=== PATIENT | female | born 1945 | race Caucasian/White ===

== ENCOUNTER 2020-03-07 08:24 | Outpatient (REF) | payer MEDICARE, SELFPAY ==
--- NOTE | 2020-03-07 08:31 | MM_ITS ---
EXAMINATION: MM SCREENING DIGITAL BREAST TOMOSYNTHESIS, BILATERAL CLINICAL INFORMATION: Right lumpectomy 2016 for breast cancer. Due for yearly. COMPARISON: Mammography: 10/26/2018, 10/17/2017, 09/27/2016 TECHNIQUE: Digital breast tomosynthesis is performed in both the craniocaudal and mediolateral oblique views along with computer-aided detection (CAD). Synthesized 2D images are generated from the tomosynthesis. Additional exaggerated right CC x2 views are provided. FINDINGS: The breasts are heterogeneously dense, which may obscure small masses (ACR BI-RADS breast composition Category c). There are post therapy changes on the right with mild diffuse breast size, surgical clips, and chronic stable scarring. There are scattered calcifications in each breast, the right are stable. There are likely increased calcifications anterior 12:30 o'clock left breast and mid upper outer left breast. Some of the punctate densities on synthesized images may also be related to digital processing artifact. Patient will be recalled for additional imaging. MM/MM tomosynthesis screening BI IMPRESSION: 1. Left: Suspect increased calcifications anterior 12:30 o'clock and mid upper outer quadrant likely with some superimposed digital processing artifact on synthesized images. 2. Right: Post therapy changes. No significant change from prior studies. ASSESSMENT: BI-RADS 0: Incomplete - Need Additional Imaging Evaluation RECOMMENDATION: 1. Additional views of the left (magnification CC, magnification ML). 2. Radiology department staff will contact the patient for additional imaging. This patient's information was entered into a reminder system with a target due date for their next mammogram.
== END 2020-03-07 08:25 | disposition home or self-care (01) ==
LOC: HO.MAMMO 08:24
PROVIDERS: PCP Internal Medicine; Visit Provider Internal Medicine
DX: Z12.31 Encounter for screening mammogram for malignant neoplasm of breast (principal)
CPT/HCPCS: 77063; 77067

== ENCOUNTER 2020-04-01 12:55 | Outpatient (REF) | payer MEDICARE, SELFPAY ==
--- NOTE | 2020-04-01 13:01 | MM_ITS ---
EXAMINATION: MM DIAGNOSTIC DIGITAL MAMMOGRAPHY, LEFT CLINICAL INFORMATION: Recall from screening for question of increased calcifications anterior 12:30 o'clock left breast and mid upper outer left breast. COMPARISON: Mammography: 03/07/2020, 10/26/2018, 10/17/2017 TECHNIQUE: Digital mammography is performed in the following views: Magnification CC, magnification ML. FINDINGS: The breasts are heterogeneously dense, which may obscure small masses (ACR BI-RADS breast composition Category c). The additional views show scattered punctate calcifications in the anterior upper outer left breast similar to prior studies dating back to 2018. There are no focal increased calcifications or ductal distribution or pleomorphic types. Results are discussed with the patient at time of visit. MM/MM added views LT IMPRESSION: Additional views show scattered punctate calcifications similar to prior studies. ASSESSMENT: BI-RADS 2: Benign RECOMMENDATION: Routine annual mammography screening. This patient's information was entered into a reminder system with a target due date for their next mammogram.
== END 2020-04-01 12:56 | disposition home or self-care (01) ==
LOC: HO.MAMMO 12:55
PROVIDERS: PCP Internal Medicine; Visit Provider Internal Medicine
DX: R92.8 Other abnormal and inconclusive findings on diagnostic imaging of breast (principal)
CPT/HCPCS: 77065

== ENCOUNTER → 2020-04-07 09:52 | Outpatient (BNV) | payer MEDICARE, SELFPAY | PROVIDERS: PCP Internal Medicine; Visit Provider Internal Medicine | DX: Z85.3 Personal history of malignant neoplasm of breast (principal) | CPT/HCPCS: 99212; 99214; G2211 ==

== ENCOUNTER 2021-04-01 06:23 | Outpatient (REF) | payer MEDICARE, SELFPAY ==
[2021-04-01 11:52] LABS: Alanine Aminotransferase 20 U/L (0-31); Anion Gap 13 (12-20); Aspartate Amino Transferase 26 U/L (5-31); Blood Urea Nitrogen 13 mg/dL (9-16); Calcium 9.6 mg/dL (8.4-10.2); Carbon Dioxide 29 mmol/L (22-29); Chloride 106 mmol/L (96-108); Cholesterol 253 mg/dL; Estimated Glomerular Filt Rate 57; Glucose Fasting 109 mg/dL (60-99); HDL Cholesterol 79 mg/dL; LDL Cholesterol Calculated 144 mg/dl; Potassium 4.2 mmol/L (3.3-5.1); Sodium 144 mmol/L (135-145); Triglycerides 153 mg/dL
[2021-04-01 12:03] LABS: Vitamin D 25-OH Total 43.5 ng/mL (>30)
== END 2021-04-01 06:24 | disposition home or self-care (01) ==
LOC: HO.HMGCLDS 06:23
PROVIDERS: PCP Internal Medicine; Visit Provider Internal Medicine
DX: I10 Essential (primary) hypertension (principal); M85.80 Other specified disorders of bone density and structure, unspecified site; Z78.0 Asymptomatic menopausal state
CPT/HCPCS: 36415; 80048; 80061; 82306; 84450; 84460

== ENCOUNTER 2021-04-21 14:58 | Outpatient (REF) | payer MEDICARE, SELFPAY ==
--- NOTE | ~2021-04-21 | MM_ITS ---
EXAMINATION: MM SCREENING DIGITAL BREAST TOMOSYNTHESIS, BILATERAL CLINICAL INFORMATION: Prior right lumpectomy for breast cancer, 2016. Due for yearly exam. COMPARISON: Mammography: 04/01/2020, 03/07/2020, 10/26/2018, 10/17/2017 TECHNIQUE: Digital breast tomosynthesis is performed in both the craniocaudal and mediolateral oblique views along with computer-aided detection (CAD). Synthesized 2D images are generated from the tomosynthesis. FINDINGS: The breasts are heterogeneously dense, which may obscure small masses (ACR BI-RADS breast composition Category c). There are post therapy changes on the right with mild reduced breast size and stable scarring and surgical clips. There is a fibronodular parenchymal pattern bilateral breasts similar to prior studies. There is no developing density or interval mass or architectural abnormality. Scattered punctate and coarse round calcifications are present in each breast similar in number and distribution to prior study. The axilla are unremarkable. No significant changes. MM/MM tomosynthesis screening BI IMPRESSION: No mammographic evidence of malignancy. Post therapy changes right breast. ASSESSMENT: BI-RADS 2: Benign RECOMMENDATION: Routine annual mammography screening. This patient's information was entered into a reminder system with a target due date for their next mammogram.
== END 2021-04-21 14:59 | disposition home or self-care (01) ==
LOC: HO.MAMMO 14:58
PROVIDERS: PCP Internal Medicine; Visit Provider Internal Medicine
DX: Z12.31 Encounter for screening mammogram for malignant neoplasm of breast (principal)
CPT/HCPCS: 77063; 77067

== ENCOUNTER 2021-05-08 10:06 | Outpatient (REF) | payer MEDICARE, SELFPAY ==
--- NOTE | ~2021-05-08 | US_ITS ---
EXAMINATION: US THYROID CLINICAL INFORMATION: Nontoxic single thyroid nodule. Palpable left neck nodule. COMPARISON: None TECHNIQUE: Linear transducer grayscale and color Doppler examination with attention to the region of the thyroid. FINDINGS: SIZE: Measurements of the thyroid lobes and nodules are given in sagittal, anteroposterior and transverse dimensions respectively. Right Thyroid Lobe: 5.2 x 1.5 x 1.7 cm, volume 6.9 mL. Parenchyma: The gland echotexture is homogeneous. Thyroid vascularity is normal. Left Thyroid Lobe: 5.1 x 1.1 x 1.4 cm, volume 4.1 mL. Parenchyma: The gland echotexture is homogeneous. Thyroid vascularity is normal. Isthmus: 0.3 cm in maximum AP dimension. Estimated total number of nodules greater than or equal to 1 cm: 0. Addiction Specialist nodules are described as follows: 1. Location: Right inferior lateral. Size: 0.8 x 0.8 x 0.8 cm, volume 0.25 mL. Nodule characteristics: Composition: Mixed cystic and solid (1). Echogenicity: Cannot be determined (1). Shape: Not taller than wide (0). Margins: Smooth (0). Echogenic Foci: None (0). ACR TI-RADS total points: 2 ACR TI-RADS category: 2 NODES: No lymphadenopathy is seen in the tissue surrounding the thyroid gland. US/US thyroid IMPRESSION: Small solitary right thyroid nodule. This does not meet TIA RADS criteria for ultrasound follow-up for fine-needle aspiration. ACR TI-RADS RECOMMENDATION REFERENCE: Ultrasound-guided fine-needle aspiration, followup ultrasound, no further follow up. * TR1 (0 point) and TR 2 (2 points): No FNA or follow up * TR3 (3 points): FNA if more than or equal to 2.5 cm in maximum dimension, followup ultrasound in 1, 3 and 5 years if 1.5 to 2.4 cm in maximum dimension. * TR4 (4-6 points): FNA if more than or equal to 1.5 cm in maximum dimension, followup ultrasound in 1, 2, 3 and 5 years if 1 to 1.4 cm in maximum dimension. * TR5 (more than or equal to 7 points): FNA if more than or equal to 1 cm in maximum dimension, followup ultrasound every year for 5 years if 0.5 to 0.9 cm in maximum dimension. * TR3, TR4 or TR5 nodules that are below the size threshold for follow up receive no follow up.
== END 2021-05-08 10:07 | disposition home or self-care (01) ==
LOC: HO.HMGCX 10:06
PROVIDERS: PCP Internal Medicine; Visit Provider Internal Medicine
DX: E04.1 Nontoxic single thyroid nodule (principal)
CPT/HCPCS: 76536

== ENCOUNTER 2021-09-09 13:23 | Outpatient (REF) | payer MEDICARE, SELFPAY ==
[2021-09-09 13:44] LABS: Binax Internal Control QC Valid; Binax Now Covid-19 Ag Positive (Negative); Binax Performed by: HO.BONILM
== END 2021-09-09 13:24 | disposition home or self-care (01) ==
LOC: HO.HMGCLDS 13:23
PROVIDERS: PCP Internal Medicine; Visit Provider Internal Medicine
DX: Z20.822 Contact with and (suspected) exposure to COVID-19 (principal); J06.9 Acute upper respiratory infection, unspecified
CPT/HCPCS: 87811; C9803

== ENCOUNTER 2021-11-02 11:42 | Outpatient (REF) | payer MEDICARE, SELFPAY ==
--- NOTE | ~2021-11-02 | XR_ITS ---
EXAMINATION: XR HIP, RIGHT CLINICAL INFORMATION: Right hip sprain COMPARISON: None TECHNIQUE: Single view pelvis and Two additional views of the right hip. FINDINGS: Bones and soft tissues are unremarkable with only some minimal superior acetabular sclerosis. No significant joint space narrowing is seen. No fractures or dislocations. Mild degenerative changes are noted at the SI joints. Alignment is anatomic. XR/XR hip RT w PEL1V IMPRESSION: No acute finding. Minimal degenerative changes as described above
== END 2021-11-02 11:43 | disposition home or self-care (01) ==
LOC: HO.HMGCX 11:42
PROVIDERS: PCP Internal Medicine; Visit Provider Internal Medicine
DX: S73.101A Unspecified sprain of right hip, initial encounter (principal)
CPT/HCPCS: 73502

== ENCOUNTER 2021-11-18 09:14 | Outpatient (REF) | payer MEDICARE, SELFPAY ==
--- NOTE | ~2021-11-18 | XR_ITS ---
EXAMINATION: XR LUMBOSACRAL SPINE WITH OBLIQUES CLINICAL INFORMATION: Low back pain COMPARISON: None TECHNIQUE: AP, both oblique, and lateral views of the lumbar spine. Lateral view of the lumbosacral junction. FINDINGS: There is normal lumbar lordosis. The vertebral heights, alignment appears normal. There is loss of L5-S1 disc height. Rest of the disc heights are normal. No acute fracture, dislocation or lytic process seen. XR/XR lumbar spine 4V min IMPRESSION: Degenerative disc changes L5-S1 disc level.
== END 2021-11-18 09:15 | disposition home or self-care (01) ==
LOC: HO.HMGCX 09:14
PROVIDERS: PCP Internal Medicine; Visit Provider Internal Medicine
DX: M54.50 Low back pain, unspecified (principal)
CPT/HCPCS: 72110

== ENCOUNTER 2022-03-26 12:49 | Outpatient (AMB) | payer MEDICARE, SELFPAY ==
--- NOTE | 2022-03-26 12:50 | MHC.PC.OV ---
Vital Signs 03/26/22 12:53 Height 5 ft 3 in Weight 104 lb 7 oz BMI 18.5 BP 135/70 Blood Pressure Location Lt brachial Position Sitting Pulse 69 Pulse Source Pulse Oximeter Pulse Oximetry (%) 97 Oxygen Delivery Method Room Air Intake Visit Reasons: Annual Physical Intake Note: Pt is here today for her annual physical exam. Allergies No Known Allergies [No Known Allergies*] Allergy (Verified 03/26/22 13:17) Medication List - Last Reconciled 03/26/22 by Lilly Colmenares MD calcium carbonate-vitamin D3 600 mg-5 mcg (200 unit) 1 tab PO DAILY metoprolol tartrate 25 mg PO BID multivitamin 1 tab PO DAILY multivitamin with minerals (Hair,Skin and Nails tablet) 2 tabs PO BID Tobacco use date assessed: 03/26/22 Fall risk assessment: 1 Fall in past year Last assessed Fall Risk: 03/26/22 HPI Annual Physical HPI Details 77-year-old lady with dyslipidemia, osteopenia, hypertension, arthritis, and with history of invasive lobular carcinoma right breast, here today for her physical exam. She has been having recurrent pain in her right shoulder, has been taking [id number] NSAIDs and applying heat to affected area with no improvement. [facility] Medical History Chronic right shoulder pain Dyslipidemia Breast cancer, right breast Colonoscopy planned Arthropathy of left shoulder Right rib fracture Osteopenia HTN (hypertension) Surgical History H/O section History of carpal tunnel surgery Family History Maternal Grandmother Breast cancer Son Drug overdose Social History Household Members: None Housing: House Are you a primary child care group leader to a significant other at home: No Do you presently have visiting nurse or other home services: No Alcohol intake: current Alcohol intake frequency: a few times a month Alcohol type: wine Patient Tobacco Use Status: Former Tobacco user Quit Date: 1985 Tobacco use type: Cigarette Cigarette Packs Per Day: 1 e-Cigarette/Vaping Use: Never Used Use of substances other than those prescribed or required for medical reasons: No Have you been hit, kicked, punched, or otherwise hurt by someone within the past year? 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 Depression Screening Interpretation: Negative Source: Developed by Drs. Selvin Hatch, Batool Pedersen, Levar Hyatt and colleagues, with an educational lisette from [employer]. Thrive Questionnaire Date Thrive assessed: 04/07/21 AUDIT C Alcohol Use Questionnaire (AUDIT-C) 1. How often do you have a drink containing alcohol?: 2-4 times a month 2. How many drinks containing alcohol do you have on a typical day when you are drinking?: 1 or 2 3. How often do you have six or more drinks on one occasion?: Never Total Score: 2 GISSELLE-7 AMB Questionnaire GISSELLE-7 Date GISSELLE - 7 assessed: 04/07/21 Source: Developed by Drs. Selvin Hatch, Batool Pedersen, Levar Hyatt and colleagues, with an educational lisette from [employer]. Review of Systems Const Denies body aches, Denies fatigue, Denies fever(s), Denies headache(s) and Denies weakness Eyes Denies change in vision and Denies itchy eyes ENT Denies dizziness, Denies headache(s), Denies nasal congestion and Denies nasal discharge Card Denies chest pain, Denies lightheadedness, Denies palpitations and Denies dyspnea Resp Denies chest congestion, Denies cough, Denies dyspnea and Denies wheezing GI Denies abdominal pain, Denies change in bowel habits and Denies heartburn Denies urinary frequency, Denies dysuria and Denies urinary urgency Musc Reports as per HPI Skin/Breast Denies lesions and Denies rash Neuro Denies dizziness, Denies headache(s) and Denies weakness Psych Reports no additional complaints Endo Denies fatigue, Denies polydipsia, Denies polyuria and Denies palpitations Joel/Lymph Denies easy bruising Aller/Immun Denies itchy eyes, Denies seasonal rhinorrhea and Denies wheezing Physical exam (Primary Care) Vital Signs: Last Vital Signs Pulse 69 03/26/22 12:53 BP 135/70 03/26/22 12:53 Pulse Ox 97 03/26/22 12:53 Oxygen Delivery Method Room Air 03/26/22 12:53 BMI result Body Mass Index 18.5 Tobacco/Smoking Status: Tobacco use Status Tobacco use date assessed 03/26/22 03/26/22 12:55 Patient Tobacco Use Status Former Tobacco user 03/26/22 12:51 Tobacco use type Cigarette 03/26/22 12:51 e-Cigarette/Vaping Use Never Used 03/26/22 12:51 Depression Screening Interpretation: Negative Thrive Assessment: Date of Thrive Assessment Date Thrive assessed 04/07/21 03/26/22 12:51 Const Other: Alert oriented x3, no acute distress noted ambulatory normal gait Orientation/consciousness: patient oriented x3 HENMT Head: Yes normocephalic and Yes atraumatic Ears: hearing grossly normal bilaterally, external ears normal, TM's normal bilaterally and EAC's normal General nose exam: Normal external nose present and No nasal discharge present Face and sinus: Yes face symmetric Mouth: Normal oral and palatal mucosa present, oropharynx normal and moist mucous membranes Eyes General: appearance normal, both eyes and all related structures Neck Other: Supple, no lymphadenopathy, thyroid gland nonpalpable Chest Chest palpation & inspection: normal inspection of the chest and other (Healed surgical scar right upper outer quadrant of breast) Breast/axilla palpation: normal palpation of the breasts and normal palpation of the axillae Resp Effort & Inspection: normal respiratory effort and able to speak in complete sentences Auscultation: clear to auscultation bilaterally Cardio Other: S1-S2 present regular rate and rhythm GI Palpation (GI): Soft to palpation, nontender, no guarding and not rigid Auscultation: normal bowel sounds General: Yes no CVA tenderness and Yes deferred Back/Spine/Pelvis Back: no CVA tenderness and No back tenderness Skin General skin exam: no rashes or lesions noted Neuro General: patient oriented x3, gait normal, moves all extremities, Normal light touch and pain sensation, no focal motor deficits and CN's II-XI intact bilaterally Extrem Other: Decreased range of motion in right shoulder joint, with slight tenderness on palpation over right AC General: Yes no joint enlargement, Yes no pedal edema, Yes no calf tenderness and Yes normal gait Psych Appearance: grossly normal and well kempt Mental Status: mental status grossly normal Speech and movement: Normal speech and movement present Affect: normal affect Attitude: cooperative Thought process: Normal thought process present Thought content: Normal thought content present Assessment and Plan Assessment & Plan (1) Annual visit for general adult medical examination with abnormal findings: Code(s): Z00.01 - Encounter for general adult medical examination with abnormal findings Plan: Will check appropriate labs. Recommended dental visit every 6 months and regular eye exams, at least every 2 years, has an appointment with [facility].. Take adequate calcium in diet and vitamin-D 3 at 2000 IU per cap once a day, in addition to weight-bearing exercises to help maintain good muscle tone and weight control. Instructed to do self-breast exam, and ordered screening mammogram and bone density scan to be done after 04/27/2022.. She already received her COVID vaccine including the booster, up-to-date with her flu shot and pneumonia vaccination and Tdap. Reminded to get shingles vaccine, which she can get administered at the pharmacy. Patient's last colonoscopy was in 2008 but does not want to repeat another procedure. Cologuard testing was ordered (2) Chronic right shoulder pain: Code(s): M25.511 - Pain in right shoulder; G89.29 - Other chronic pain Plan: X-ray of right shoulder ordered, referral ordered for physical therapy (3) Dyslipidemia: Code(s): E78.5 - Hyperlipidemia, unspecified Plan: Reviewed last fasting lipid profile with patient with elevated triglycerides . Stressed importance of adherence to low-cholesterol diet and regular exercise, at least 30 minutes 3 to 4 times a week. Advised patient to make healthy food choices, eat more fruits, vegetables, whole grains, wild caught fish and low-fat dairy. Limit amount of meat and fried or fatty food products, as well as processed foods and fast foods. Repeat fasting lipid panel ordered (4) Osteopenia: Code(s): M85.80 - Other specified disorders of bone density and structure, unspecified site Plan: Advised to continue to doing regular weight-bearing exercise, take vitamin-D 3 supplements and take adequate calcium from dietary sources. bone density scan was ordered (5) HTN (hypertension): Code(s): I10 - Essential (primary) hypertension Plan: Blood pressure at goal of less than 130/80. Continue with current medication. Reinforced importance of following a low sodium diet, getting regular exercise, and lowering stress levels. (6) Menopausal disorder: Code(s): N95.9 - Unspecified menopausal and perimenopausal disorder Orders: Orders XR shoulder RT min 2V 03/26/22 M25.511 - Pain in right shoulder, G89.29 - Other chronic pain Alanine Aminotransferase 03/26/22 E78.5 - Hyperlipidemia, unspecified, M85.80 - Other specified disorders of bone density and structure, unspecified site, I10 - Essential (primary) hypertension, Z00.01 - Encounter for general adult medical examination with abnormal findings, Z78.0 - Asymptomatic menopausal state Basic Metabolic Panel Fasting 03/26/22 E78.5 - Hyperlipidemia, unspecified, M85.80 - Other specified disorders of bone density and structure, unspecified site, I10 - Essential (primary) hypertension, Z00.01 - Encounter for general adult medical examination with abnormal findings, Z78.0 - Asymptomatic menopausal state PT Evaluation and Treatment 03/26/22 M25.511 - Pain in right shoulder, G89.29 - Other chronic pain Lipid Panel 03/26/22 E78.5 - Hyperlipidemia, unspecified, M85.80 - Other specified disorders of bone density and structure, unspecified site, I10 - Essential (primary) hypertension, Z00.01 - Encounter for general adult medical examination with abnormal findings, Z78.0 - Asymptomatic menopausal state Complete Blood Count Auto Diff 03/26/22 E78.5 - Hyperlipidemia, unspecified, M85.80 - Other specified disorders of bone density and structure, unspecified site, I10 - Essential (primary) hypertension, Z00.01 - Encounter for general adult medical examination with abnormal findings, Z78.0 - Asymptomatic menopausal state Aspartate Amino Transferase 03/26/22 E78.5 - Hyperlipidemia, unspecified, M85.80 - Other specified disorders of bone density and structure, unspecified site, I10 - Essential (primary) hypertension, Z00.01 - Encounter for general adult medical examination with abnormal findings, Z78.0 - Asymptomatic menopausal state Vitamin D 25-OH Total 03/26/22 E78.5 - Hyperlipidemia, unspecified, M85.80 - Other specified disorders of bone density and structure, unspecified site, I10 - Essential (primary) hypertension, Z00.01 - Encounter for general adult medical examination with abnormal findings, Z78.0 - Asymptomatic menopausal state MM screening mammo BI 03/26/22 M85.80 - Other specified disorders of bone density and structure, unspecified site, Z12.31 - Encounter for screening mammogram for malignant neoplasm of breast, N95.9 - Unspecified menopausal and perimenopausal disorder XR DEXA axial skeleton 03/26/22 M85.80 - Other specified disorders of bone density and structure, unspecified site, N95.9 - Unspecified menopausal and perimenopausal disorder Referrals Cologuard Test Z12.12 - Encounter for screening for malignant neoplasm of rectum, Z12.11 - Encounter for screening for malignant neoplasm of colon Coding Level of Care Code Est Pt Prev Care >65y(72562) Diagnoses Annual visit for general adult medical examination with abnormal findings Z00.01 Chronic right shoulder pain M25.511; G89.29 Dyslipidemia E78.5 Osteopenia M85.80 HTN (hypertension) I10 Menopausal disorder N95.9
[2022-03-26 12:53] VITALS: BP 135/70; PULSE 69; O2SAT 97; BMI 18.5
== END 2022-03-26 15:25 | disposition home or self-care (01) ==
LOC: HO.HMGC 12:49
PROVIDERS: PCP Internal Medicine; Visit Provider Internal Medicine
DX: Z00.01 Encounter for general adult medical examination with abnormal findings (principal); M25.511 Pain in right shoulder; G89.29 Other chronic pain; E78.5 Hyperlipidemia, unspecified; M85.80 Other specified disorders of bone density and structure, unspecified site; I10 Essential (primary) hypertension; N95.9 Unspecified menopausal and perimenopausal disorder
CPT/HCPCS: 99397

== ENCOUNTER 2022-03-26 13:39 | Outpatient (REF) | payer MEDICARE, SELFPAY ==
--- NOTE | ~2022-03-26 | XR_ITS ---
EXAMINATION: XR SHOULDER, RIGHT CLINICAL INFORMATION: Pain COMPARISON: None TECHNIQUE: Three views of the right shoulder. FINDINGS: Bone alignment is normal. No fracture or dislocation. Normal glenohumeral joint. Mild arthritis at the acromioclavicular joint. Soft tissue calcifications raising adjacent to the greater tuberosity more suggestive suggestive of calcific bursitis than tendinitis. XR/XR shoulder RT min 2V IMPRESSION: Degenerative changes at the acromioclavicular joint. Calcific bursitis.
== END 2022-03-26 13:40 | disposition home or self-care (01) ==
LOC: HO.HMGCX 13:39
PROVIDERS: PCP Internal Medicine; Visit Provider Internal Medicine
DX: G89.29 Other chronic pain (principal); M25.511 Pain in right shoulder
CPT/HCPCS: 73030

== ENCOUNTER 2022-04-27 08:43 | Outpatient (REF) | payer MEDICARE, SELFPAY ==
--- NOTE | ~2022-04-27 | MM_ITS ---
EXAMINATION: BONE DENSITOMETRY CLINICAL INDICATION: Other specified disorders of bone density and structure, unspecified site. COMPARISON: Previous BD dated 04/03/2019 and baseline BD dated 01/19/2008. TECHNIQUE: Using a [employer] DXA System (software version: 13.1) manufactured by [employer], dual-energy x-ray absorptiometry was performed of the lumbar spine and left hip. The images are of good technical quality. Summary results are attached. FINDINGS: AP SPINE L1-L4: Current: BMD 0.967 g/cm2, Z-score 0.5, T-score -1.8, osteopenia, 1.9% decrease from previous, 5.1% decrease from baseline (<5% change is not significant). Prior: BMD 0.986 g/cm2. Baseline: BMD 1.019 g/cm2. LEFT FEMUR, NECK: Current: BMD 0.742 g/cm2, Z-score 0.1, T-score -2.1, osteopenia. Prior: BMD 0.705 g/cm2. Baseline: BMD 0.865 g/cm2. LEFT FEMUR, TOTAL: Current: BMD 0.773 g/cm2, Z-score 0.2, T-score -1.9, osteopenia, 5.9% increase from previous, 13.0% decrease from baseline (<5% change is not significant). Prior: BMD 0.730 g/cm2. Baseline: BMD 0.888 g/cm2. IDENTIFIED RISK FACTORS: Low body weight for height. Menopause. HISTORY OF FRACTURE: None listed. MEDICATIONS: Calcium supplement or multivitamin. Vitamin D. Prolia. MM/XR DEXA axial skeleton IMPRESSION: 1. DIAGNOSIS: Osteopenia based on the lowest T-score value of -2.1 in the femoral neck applying World Health Organization criteria. 2. 10-YEAR FRACTURE RISK PREDICTION, FRAX: Not performed in this patient on estrogen or bone building treatments. 3. Treatment Recommendations: NOF guidelines recommend consideration for treatment in postmenopausal women and men age 50 and older presenting with the following: -A hip or vertebral (clinical or morphometric) fracture. -T-score less than or equal to -2.5 at the femoral neck or spine after appropriate evaluation to exclude secondary causes. -Low bone mass at the hip or spine and a 10-year fracture probability by FRAX of greater than or equal to 3% for hip fracture or greater than or equal to 20% for major osteoporotic fracture based on the [place] adapted WHO algorithm. 4. Other Recommendations: All treatment decisions require clinical judgment and consideration of individual patient factors, including patient preferences, comorbidities, previous drug use, risk factors not captured in the FRAX model (e.g. frailty, falls, vitamin D deficiency, increased bone turnover, interval significant decline in bone density) and possible under or overestimation of fracture risk by FRAX. Additional medical evaluation for secondary cause of low bone mineral density may be appropriate. FUTURE SCAN RECOMMENDATION: People with diagnosed cases of osteoporosis or at high risk for fracture should have regular bone mineral density tests. For patients eligible for Medicare, routine testing is allowed once every 2 years. The testing frequency can be increased to one year for patients who have rapidly progressing disease, those who are receiving or discontinuing medical therapy to restore bone mass, or have additional risk factors.
--- NOTE | ~2022-04-27 | MM_ITS ---
EXAMINATION: MM SCREENING DIGITAL BREAST TOMOSYNTHESIS, BILATERAL CLINICAL INFORMATION: Screening. Asymptomatic. Right breast ILC status post lumpectomy, 2016. COMPARISON: Mammography: 04/21/2021, 04/01/2020, 03/07/2020, 10/26/2018 TECHNIQUE: Digital breast tomosynthesis is performed in both the craniocaudal and mediolateral oblique views along with computer-aided detection (CAD). Synthesized 2D images are generated from the tomosynthesis. FINDINGS: The breasts are heterogeneously dense, which may obscure small masses (ACR BI-RADS breast composition Category c). There is a fibronodular parenchymal pattern similar to prior studies. Postsurgical changes right breast are stable. Again, there are scattered punctate calcifications regional left upper outer quadrant and some coarse calcifications on the right. There are no significant masses, abnormal calcifications, or other abnormalities. No significant changes. MM/MM tomosynthesis screening BI IMPRESSION: No mammographic evidence of malignancy. ASSESSMENT: BI-RADS 2: Benign RECOMMENDATION: Routine annual mammography screening. This patient's information was entered into a reminder system with a target due date for their next mammogram.
== END 2022-04-27 08:44 | disposition home or self-care (01) ==
LOC: HO.MAMMO 08:43
PROVIDERS: PCP Internal Medicine; Visit Provider Internal Medicine
DX: Z12.31 Encounter for screening mammogram for malignant neoplasm of breast (principal); Z13.820 Encounter for screening for osteoporosis; M85.80 Other specified disorders of bone density and structure, unspecified site; Z78.0 Asymptomatic menopausal state
CPT/HCPCS: 77063; 77067; 77080

== ENCOUNTER 2023-04-29 08:45 | Outpatient (REF) | payer MEDICARE, SELFPAY ==
--- NOTE | ~2023-04-29 | MM_ITS ---
EXAMINATION: MM SCREENING DIGITAL BREAST TOMOSYNTHESIS, BILATERAL CLINICAL INFORMATION: Screening. Asymptomatic. The patient is status post right breast conservation for invasive right breast lobular cancer diagnosed in 2016. COMPARISON: Mammography: This study is compared with prior exams dating back to 2019. TECHNIQUE: Digital breast tomosynthesis is performed in both the craniocaudal and mediolateral oblique views along with computer-aided detection (CAD). Synthesized 2D images are generated from the tomosynthesis. FINDINGS: The breasts are heterogeneously dense, which may obscure small masses (ACR BI-RADS breast composition Category c). There are no significant masses, abnormal calcifications, or other abnormalities. There are postsurgical changes in the upper outer quadrant of the right breast. MM/MM tomosynthesis screening BI IMPRESSION: No mammographic evidence of malignancy. ASSESSMENT: BI-RADS BI-RADS 2 - Benign Findings RECOMMENDATION: Routine annual mammography screening. 1 year F/U This examination should not preclude the clinical evaluation of a suspicious palpable abnormality. This patient's information was entered into a reminder system with a target due date for their next mammogram.
== END 2023-04-29 08:46 | disposition home or self-care (01) ==
LOC: HO.MAMMO 08:45
PROVIDERS: PCP Internal Medicine; Visit Provider Internal Medicine
DX: Z12.31 Encounter for screening mammogram for malignant neoplasm of breast (principal)
CPT/HCPCS: 77063; 77067

== ENCOUNTER → 2023-04-29 09:00 | Outpatient (BNV) | payer MEDICARE, SELFPAY | PROVIDERS: PCP Internal Medicine; Visit Provider Radiology Diagnostic Radiology | DX: Z12.31 Encounter for screening mammogram for malignant neoplasm of breast (principal) | CPT/HCPCS: 77063; 77067 ==

== ENCOUNTER 2023-06-01 09:10 | Outpatient (AMB) | payer MEDICARE, SELFPAY ==
[2023-06-01 09:21] VITALS: BP 120/68; PULSE 73; TEMP 36.1; O2SAT 96; BMI 18.8
--- NOTE | 2023-06-01 09:21 | AM.OFFWIN_ITS ---
Intake Vital Signs 06/01/23 09:21 Height 5 ft 3 in Weight 106 lb BMI 18.8 BP 120/68 Blood Pressure Location Lt brachial Position Sitting Pulse 73 Pulse Source Pulse Oximeter Temp 97.0 F Temp Source Temporal Artery Scan Pulse Oximetry (%) 96 Oxygen Delivery Method Room Air Intake Visit Reasons: EST/stiff neck(lobby) Intake Note: pt is here today for stiff neck started Patient Tobacco Use Status: Former Tobacco user Quit Date: 1985 Allergies No Known Allergies [No Known Allergies*] Allergy (Verified 06/01/23 09:22) Do you need a note to return to daycare/school/sports/work: No HPI HPI Comments History of Present Illness Details Patient is a 77yo F who presents to office with neck pain She said she slept wrong and has had bilateral neck pain since L worse than right Better with rest worse with upper extremity movement Denies fever, chills, congestion, cough, ear pain, ST, CP or SOB + intermittent headache without dizzines s Tried a back and muscle OTC medicine which helps She denies weakness to arms or numbness/tingling PFSH Medical History Chronic right shoulder pain Dyslipidemia Breast cancer, right breast Colonoscopy planned Arthropathy of left shoulder Right rib fracture Osteopenia HTN (hypertension) Surgical History H/O section History of carpal tunnel surgery Family History Maternal Grandmother Breast cancer Son Drug overdose Social History Household Members: None Housing: House Are you a primary aged or disabled carer to a significant other at home: No Do you presently have visiting nurse or other home services: No Alcohol intake: current Alcohol intake frequency: a few times a month Alcohol type: wine Patient Tobacco Use Status: Former Tobacco user Quit Date: 1985 Tobacco use type: Cigarette Cigarette Packs Per Day: 1 e-Cigarette/Vaping Use: Never Used service: No Current occupational status: retired 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 Cognitive needs: No Hearing needs: No Vision needs: No Review of Systems Const Denies body aches, Denies chills, Denies fatigue, Denies fever(s) and Reports headache(s) Eyes Denies blurry vision ENT Denies otalgia, Reports headache(s), Denies nasal discharge, Reports neck pain, Denies sinus pain, Denies sinus pressure, Denies sore throat and Denies throat swelling Card Denies chest pain, Denies rapid heart rate and Denies dyspnea Resp Denies chest congestion, Denies cough and Denies dyspnea GI Denies abdominal pain, Denies nausea and Denies vomiting Musc Reports neck pain, Denies numbness, Reports stiffness and Denies tingling Skin/Breast Denies erythema and Denies rash Neuro Reports headache(s), Denies numbness and Denies tingling Endo Denies fatigue Aller/Immun Denies throat swelling Physical Exam Vital Signs: Last Vital Signs Temp 97.0 F 06/01/23 09:21 Pulse 73 06/01/23 09:21 BP 120/68 06/01/23 09:21 Pulse Ox 96 06/01/23 09:21 Oxygen Delivery Method Room Air 06/01/23 09:21 BMI result Body Mass Index 18.8 General: Non-toxic, NAD. Speaking full sentences. Skin: Warm dry throughout. No vesicular rashes to neck or scalp Eye: EOMI, PERRL Neck: No midline tenderness. + bilateral trapezius tenderness to palpation. HENT: Airway patent. Uvula midline. No pharyngeal erythema or edema. 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 Bilateral canals clear. TM non-erythematous, non-bulging. No TM perforation or hemotympanum noted. Lymph: No lymphadenopathy Respiratory: CTA bilaterally. No wheezes, rales or rhonchi Cardiac: RRR. No murmur. No carotid bruits bilaterlly. MSK: + tenderness to palpation bilateral lateral neck onto superior aspect of trapezeii bilaterally. No clavicular, AC joint, lateral humeral head or bicipital groove tenderness bilaterally. No tendernss to palpation of arms or wrists. 5/5 sap bods developer strength. Pain to shoulders with arm abduction to 90 degrees. Full ROM with neck flexion and extension Neurology: A/O. No aphasia or facial droop. Gait without abnormality Psych: Good mood and affect Assessment & Plan Assessment & Plan (1) Neck pain: Code(s): M54.2 - Cervicalgia Plan: Patient seen and evaluated. No midline tenderness or hx of trauma; no xray indicated No sign of infectious process or concern meningitis Warm compress and robaxin (lethargy. no alcohol or driving) Discussed calling for PT eval. Discussed ER s/s like dizziness, weakness, fever, CP, SOB, intractible headache Patient gave verbal understanding and had no additional questions or concerns at time of discharge All questions answered Medications: New methocarbamol 500 mg PO TID PRN 14 tabs 0RF muscle spasm Coding Level of Care Code Est Pt Level 3 (06321) Diagnoses Neck pain M54.2
== END 2023-06-01 10:08 | disposition home or self-care (01) ==
PROVIDERS: PCP Internal Medicine; Visit Provider Physician Assistant
DX: M54.2 Cervicalgia (principal)
CPT/HCPCS: 99213

== ENCOUNTER 2023-07-06 11:16 | Outpatient (AMB) | payer MEDICARE, SELFPAY ==
[2023-07-06 11:52] VITALS: BP 140/60; PULSE 60; O2SAT 100; BMI 18.6
--- NOTE | 2023-07-06 11:52 | MHC.PC.OV ---
Vital Signs 07/06/23 11:52 07/06/23 12:32 Height 5 ft 3 in Weight 105 lb BMI 18.6 BP 140/60 H 135/60 Blood Pressure Location Lt brachial Position Sitting Pulse 60 Pulse Source Pulse Oximeter Pulse Oximetry (%) 100 Oxygen Delivery Method Room Air Intake Visit Reasons: Stiff neck/Headaches Intake Note: Pt is here today c/o stiff neck/ headache x4wks: No injury noted Allergies No Known Allergies [No Known Allergies*] Allergy (Verified 08/25/23 16:25) Medication List - Last Reconciled 09/05/23 by Lilly Colmenares MD calcium carbonate-vitamin D3 600 mg-5 mcg (200 unit) 1 tab PO DAILY methocarbamol 500 mg PO TID PRN metoprolol tartrate 25 mg PO BID multivitamin with minerals (Hair,Skin and Nails tablet) 2 tabs PO BID Tobacco use date assessed: 07/06/23 Fall risk assessment: No Falls in past year Last assessed Fall Risk: 07/06/23 Dental Screening Did you have a dental visit in the last 12 months?: No Was dental information given to patient?: Patient declined HPI Stiff neck/Headaches HPI Details 78-year-old lady with history dyslipidemia, hypertension, osteopenia , history of invasive lobular carcinoma right breast, and degenerative disc disease in cervical spine, here today complaining of waking up with a stiff neck 1 morning at least a week ago. Patient states it hurts to move her neck from [id number] and forward, and now has been having a dull headache accompanying symptoms. She has tried taking [id number] Tylenol, massaged on arthritis screening to affected area which has afforded only for her relief. Denies any gait instability, no chest pain or shortness of breath, no nausea vomiting. [facility] Medical History History of rib fracture History of breast cancer Cervical radiculopathy due to degenerative joint disease of spine Dyslipidemia Osteopenia HTN (hypertension) Surgical History H/O section History of carpal tunnel surgery Family History Maternal Grandmother Breast cancer Son Drug overdose Social History Household Members: None Housing: House Are you a primary disabilities caregiver to a significant other at home: No Do you presently have visiting nurse or other home services: No Alcohol intake: current Alcohol intake frequency: a few times a month Alcohol type: wine Patient Tobacco Use Status: Former Tobacco user Tobacco use type: Cigarette Cigarette Packs Per Day: 1 e-Cigarette/Vaping Use: Never Used Use of substances other than those prescribed or required for medical reasons: No Are you DNR?: No Advance Directives: No Advance Directives Information Provided: Yes Advance Directives on File: No Patient : No : No service: No Current occupational status: retired 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 1. Little interest or pleasure in doing things: not at all 2. Feeling down, depressed, or hopeless: not at all 3. Trouble falling or staying asleep, or sleeping too much: not at all 4. Feeling tired or having little energy: not at all 5. Poor appetite or overeating: not at all 6. Feeling bad about yourself - or that you are a failure or have let yourself or your family down: not at all 7. Trouble concentrating on things, such as reading the newspaper or watching television: not at all 8. Moving or speaking so slowly that other people could have noticed. Or the opposite - being so fidgety or restless that you have been moving around a lot more than usual: not at all 9. Thoughts that you would be better off or of hurting yourself in some way: not at all Total score: 0 Depression Screening Interpretation: Negative Depression Screening Done: Yes 37848 - PHQ-9 Billing: Yes Source: Developed by Drs. Selvin Hatch, Batool Pedersen, Levar Hyatt and colleagues, with an educational lisette from [employer]. Thrive Questionnaire Date Thrive assessed: 07/06/23 I am a: Patient What is your living situation today?: I have a steady place to live Within the past 12 months, did the food you bought not last and you didn't have the money to get more?: Never true Within the past 12 months, did you worry whether your food would run out before you got money to buy more?: Never true Do you have trouble paying for medicines?: No Do you have trouble getting transportation to medical appointments?: No Do you have trouble paying your heating and electricity bill?: No Do you have trouble taking care of your child, family member or friend?: No Do you have trouble with day-to-day activities such as bathing, preparing meals, shopping, managing finances, etc.?: No Are you currently unemployed and looking for a job?: No Are you interested in more education?: No THRIVE Score: 0 AUDIT C Alcohol Use Questionnaire (AUDIT-C) 1. How often do you have a drink containing alcohol?: Monthly or less 2. How many drinks containing alcohol do you have on a typical day when you are drinking?: 1 or 2 3. How often do you have six or more drinks on one occasion?: Never Total Score: 1 GISSELLE-7 AMB Questionnaire GISSELLE-7 Date GISSELLE - 7 assessed: 04/29/21 Feeling nervous, anxious, or on edge: 0 = Not at all Not being able to stop or control worryin = Not at all Worrying too much about different things: 0 = Not at all Trouble relaxin = Not at all Being so restless that it is hard to sit still: 0 = Not at all Becoming easily annoyed or irritable: 0 = Not at all Feeling afraid as if something awful might happen: 0 = Not at all Total GISSELLE-7 score (0-4 normal; 5-9 mild; 10-14 moderate; 15-21 severe): 0 Source: Developed by Drs. Selvin Hatch, Batool Pedersen, Levar Hyatt and colleagues, with an educational lisette from [employer]. Review of Systems Const Reports as per HPI and Denies fever(s) ENT Reports no additional complaints Card Denies chest pain, Denies rapid heart rate and Denies dyspnea Resp Denies chest congestion, Denies cough and Denies dyspnea GI Denies abdominal pain, Denies nausea and Denies vomiting Reports no additional complaints Musc Denies numbness, Reports stiffness and Denies tingling Skin/Breast Denies lesions and Denies rash Neuro Denies numbness and Denies tingling Physical exam (Primary Care) Vital Signs: Last Vital Signs Pulse 60 07/06/23 11:52 BP 135/60 07/06/23 12:32 Pulse Ox 100 07/06/23 11:52 Oxygen Delivery Method Room Air 07/06/23 11:52 BMI result Body Mass Index 18.6 Tobacco/Smoking Status: Tobacco use Status Tobacco use date assessed 07/06/23 07/06/23 11:58 Patient Tobacco Use Status Former Tobacco user 07/06/23 11:58 Tobacco use type Cigarette 07/06/23 11:58 e-Cigarette/Vaping Use Never Used 07/06/23 11:58 PHQ-9: PHQ-9 Score PHQ-9: Total score 0 07/06/23 12:44 Depression Screening Interpretation: Negative Thrive Assessment: Date of Thrive Assessment Date Thrive assessed 07/06/23 07/06/23 11:58 Const Other: Alert oriented x3, no acute distress noted ambulatory normal gait Orientation/consciousness: patient oriented x3 HENTN Head: Yes normocephalic Ears: external ears normal General nose exam: Normal external nose present Face and sinus: Yes face symmetric Mouth: Normal oral and palatal mucosa present, oropharynx normal and moist mucous membranes Resp Effort & Inspection: normal respiratory effort and able to speak in complete sentences Auscultation: clear to auscultation bilaterally Cardio Other: S1-S2 present regular rate and rhythm Back/Spine/Pelvis Cervical Spine: cervical muscular tenderness and cervical spasm Skin General skin exam: no rashes or lesions noted Neuro General: patient oriented x3, gait normal, moves all extremities, Normal light touch and pain sensation, no focal motor deficits and CN's II-XI intact bilaterally Assessment and Plan Assessment & Plan (1) Neck pain: Code(s): M54.2 - Cervicalgia Plan: X-ray cervical spine ordered and referred for physical therapy for further evaluation managemen (2) HTN (hypertension): Code(s): I10 - Essential (primary) hypertension Plan: Systolic blood pressure high today, likely due to pain currently on metoprolol tartrate 25 mg 1 tablet twice a day, will continue, reinforced importance of following a low-salt diet. Return to clinic in a month for follow-up, already scheduled , ordered basic metabolic panel (3) Dyslipidemia: Comment: Controlled with diet Code(s): E78.5 - Hyperlipidemia, unspecified Plan: Fasting lipid panel ordered . Stressed importance of adherence to low-cholesterol diet and regular exercise, at least 30 minutes 3 to 4 times a week. Advised patient to make healthy food choices, eat more fruits, vegetables, whole grains, wild caught fish and low-fat dairy. Limit amount of meat and fried or fatty food products, as well as processed foods and fast foods. Orders: Orders PT Evaluation and Treatment 07/06/23 M54.2 - Cervicalgia Lipid Panel 07/06/23 M85.80 - Other specified disorders of bone density and structure, unspecified site, I10 - Essential (primary) hypertension, E78.5 - Hyperlipidemia, unspecified, Z78.0 - Asymptomatic menopausal state Vitamin D 25-OH Total 07/06/23 M85.80 - Other specified disorders of bone density and structure, unspecified site, I10 - Essential (primary) hypertension, E78.5 - Hyperlipidemia, unspecified, Z78.0 - Asymptomatic menopausal state Complete Blood Count Auto Diff 07/06/23 M85.80 - Other specified disorders of bone density and structure, unspecified site, I10 - Essential (primary) hypertension, E78.5 - Hyperlipidemia, unspecified, Z78.0 - Asymptomatic menopausal state Basic Metabolic Panel Fasting 07/06/23 M85.80 - Other specified disorders of bone density and structure, unspecified site, I10 - Essential (primary) hypertension, E78.5 - Hyperlipidemia, unspecified, Z78.0 - Asymptomatic menopausal state Aspartate Amino Transferase 07/06/23 M85.80 - Other specified disorders of bone density and structure, unspecified site, I10 - Essential (primary) hypertension, E78.5 - Hyperlipidemia, unspecified, Z78.0 - Asymptomatic menopausal state Alanine Aminotransferase 07/06/23 M85.80 - Other specified disorders of bone density and structure, unspecified site, I10 - Essential (primary) hypertension, E78.5 - Hyperlipidemia, unspecified, Z78.0 - Asymptomatic menopausal state XR cervical spine w flex/ext 07/06/23 M54.2 - Cervicalgia Coding Level of Care Code Est Pt Level 4 (09292) Diagnoses Neck pain M54.2 HTN (hypertension) I10 Dyslipidemia E78.5
[2023-07-06 12:32] VITALS: BP 135/60
== END 2023-07-06 15:50 | disposition home or self-care (01) ==
PROVIDERS: PCP Internal Medicine; Visit Provider Internal Medicine
DX: M54.2 Cervicalgia (principal); I10 Essential (primary) hypertension; E78.5 Hyperlipidemia, unspecified
CPT/HCPCS: 99214

== ENCOUNTER 2023-07-06 12:44 | Outpatient (REF) | payer MEDICARE, SELFPAY ==
--- NOTE | ~2023-07-06 | XR_ITS ---
EXAMINATION: XR cervical spine CLINICAL INFORMATION: Pain COMPARISON: No prior imaging available at the time of dictation. TECHNIQUE: 7 views of the cervical spine were obtained. FINDINGS: The cervical spine is visualized to the level of C7-T1 on the lateral view. Reversal of usual cervical lordosis. 4 mm anterolisthesis of C3 on C4 in neutral position views which is decreased to 2 mm in extension and increases to 5 mm in flexion. Vertebral body heights are maintained. Lateral masses of C1 are well aligned on C2. Visualized portion of the dens is intact. Multilevel degenerative disc disease worst at C5-C6 where there is advanced loss of disc space height and bulky anterior disc osteophyte complex. Multilevel facet arthropathy. Moderate to severe multilevel bilateral neural foraminal narrowing, left greater than right. No prevertebral soft tissue swelling. XR/XR cervical spine w flex/ext IMPRESSION: 1. Reversal of usual cervical lordosis. 4 mm anterolisthesis of C3 on C4 in neutral position views which is decreased to 2 mm in extension and increases to 5 mm in flexion. 2. Multilevel degenerative disc disease worst at C5-C6 where there is advanced loss of disc space height and bulky anterior disc osteophyte complex. Multilevel facet arthropathy. 3. Moderate to severe multilevel bilateral neural foraminal narrowing, left greater than right.
== END 2023-07-06 12:45 | disposition home or self-care (01) ==
LOC: HO.HMGCX 12:44
PROVIDERS: PCP Internal Medicine; Visit Provider Internal Medicine
DX: M54.2 Cervicalgia (principal)
CPT/HCPCS: 72052

== ENCOUNTER 2023-08-25 15:48 | Outpatient (AMB) | payer MEDICARE, SELFPAY ==
[2023-08-25 15:58] VITALS: BP 132/70; PULSE 89; O2SAT 97; BMI 18.8
--- NOTE | 2023-08-25 15:58 | A.OFFPC_ITS ---
Vital Signs 08/25/23 15:58 Height 5 ft 3 in Weight 106 lb BMI 18.8 BP 132/70 Blood Pressure Location Lt brachial Position Sitting Pulse 89 Pulse Source Pulse Oximeter Pulse Oximetry (%) 97 Oxygen Delivery Method Room Air Intake Visit Reasons: Rt eye cat. 08/28 & Lt eye 09/11 Dr. Solis Intake Note: Pt is here today for her pre-op cataract surgery Rt eye 08/28 & Lt eye 09/11 Dr. Solis Allergies No Known Allergies [No Known Allergies*] Allergy (Verified 08/25/23 16:25) Medication List - Last Reconciled 08/25/23 by Lilly Colmenares MD calcium carbonate-vitamin D3 600 mg-5 mcg (200 unit) 1 tab PO DAILY methocarbamol 500 mg PO TID PRN metoprolol tartrate 25 mg PO BID multivitamin 1 tab PO DAILY multivitamin with minerals (Hair,Skin and Nails tablet) 2 tabs PO BID Tobacco use date assessed: 08/25/23 Fall risk assessment: No Falls in past year Last assessed Fall Risk: 08/25/23 Dental Screening Dental Screen Date: 08/25/23 Did you have a dental visit in the last 12 months?: No Was dental information given to patient?: Patient has dentist HPI Rt eye cat. 08/28 & Lt eye 09/11 Dr. Solis HPI Details 78-year-old lady with hypertension, curr ently controlled on metoprolol tartrate 25 mg taken 1 tablet twice a day, here today for preoperative exam for cataract surgery scheduled for 08/29/2023 OD and 09/12/2023 OS , requested by Dr. Solis. She has been feeling well with no complaints of headache, no chest pain no lightheadedness or shortness of breath. She however has been having recurrent pain and stiffness in posterior neck radiating down both shoulders. X-ray of her cervical spine showed Multilevel degenerative disc disease worst at C5-C6 where there is advanced loss of disc space height and bulky anterior disc osteophyte complex, moderate to severe multilevel bilateral neural foraminal narrowing, left greater than right with reversal of cervical lordosis. She has been taking Tylenol and has been applying moist heat to affected area which has afforded temporary relief. [facility] Medical History (Updated 08/25/23 @ 16:56 by Lilly Colmenares MD) History of rib fracture History of breast cancer Cervical radiculopathy due to degenerative joint disease of spine Dyslipidemia Osteopenia HTN (hypertension) Surgical History H/O section History of carpal tunnel surgery Family History Maternal Grandmother Breast cancer Son Drug overdose Social History Household Members: None Housing: House Are you a primary healthcare network pricing consultant to a significant other at home: No Do you presently have visiting nurse or other home services: No Alcohol intake: current Alcohol intake frequency: a few times a month Alcohol type: wine Patient Tobacco Use Status: Former Tobacco user Tobacco use type: Cigarette Cigarette Packs Per Day: 1 e-Cigarette/Vaping Use: Never Used service: No Current occupational status: retired 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 Selvin Hatch, Batool Pedersen, Levar Hyatt and colleagues, with an educational lisette from [employer]. Review of Systems Const Denies chills, Denies fever(s) and Denies headache(s) Eyes Reports blurry vision ENT Denies headache(s), Denies nasal discharge, Reports neck pain, Denies sinus pressure and Denies sore throat Card Denies chest pain, Denies rapid heart rate and Denies dyspnea Resp Denies chest congestion, Denies cough and Denies dyspnea GI Denies abdominal pain, Denies nausea and Denies vomiting Reports no additional complaints Musc Reports neck pain, Denies numbness, Reports stiffness and Denies tingling Skin/Breast Denies breast pain, Denies breast mass and Denies rash Neuro Denies headache(s), Denies numbness and Denies tingling Endo Reports no additional complaints Joel/Lymph Reports no additional complaints Aller/Immun Reports no additional complaints Physical exam (Primary Care) Vital Signs: Last Vital Signs Pulse 89 08/25/23 15:58 BP 132/70 05/30/24 15:58 Pulse Ox 97 08/25/23 15:58 Oxygen Delivery Method Room Air 08/25/23 15:58 BMI result Body Mass Index 18.8 Tobacco/Smoking Status: Tobacco use Status Tobacco use date assessed 08/25/23 08/25/23 16:10 Patient Tobacco Use Status Former Tobacco user 08/25/23 16:00 Tobacco use type Cigarette 08/25/23 16:00 e-Cigarette/Vaping Use Never Used 08/25/23 16:00 Thrive Assessment: Date of Thrive Assessment Date Thrive assessed 07/06/23 08/25/23 16:00 Const Other: Alert oriented x3, no acute distress noted ambulatory normal gait Orientation/consciousness: patient oriented x3 HENMT Head: Yes normocephalic Ears: external ears normal, TM's normal bilaterally and EAC's normal General nose exam: Normal external nose present and No nasal discharge present Face and sinus: Yes face symmetric Mouth: Normal oral and palatal mucosa present, oropharynx normal and moist mucous membranes Eyes General: appearance normal, both eyes and all related structures Neck Other: Supple, no lymphadenopathy, thyroid gland nonpalpable Resp Effort & Inspection: normal respiratory effort and able to speak in complete sentences Auscultation: clear to auscultation bilaterally Cardio Other: S1-S2 present regular rate and rhythm GI Palpation (GI): Soft to palpation, nontender and no guarding Auscultation: normal bowel sounds General: Yes no CVA tenderness and Yes deferred Back/Spine/Pelvis Back: no CVA tenderness Cervical Spine: cervical muscular tenderness and cervical spasm Skin General skin exam: no rashes or lesions noted Neuro General: patient oriented x3, gait normal, moves all extremities, Normal light touch and pain sensation, no focal motor deficits and CN's II-XI intact bilaterally Extrem General: Yes no joint enlargement, Yes no pedal edema, Yes no calf tenderness and Yes normal gait Psych Appearance: grossly normal and well kempt Mental Status: mental status grossly normal Speech and movement: Normal speech and movement present Affect: normal affect Attitude: cooperative Thought process: Normal thought process present Thought content: Normal thought content present Assessment and Plan Assessment & Plan (1) Preoperative examination: Code(s): Z01.818 - Encounter for other preprocedural examination Plan: [age] year old with hypertension, history of right breast cancer, cervical degenerative disc disease,here for pre-op clearance for cataract surgery scheduled for 08/29/2023 OD and 09/12/2023 OS, requested by Dr. Solis. She has no known Pt coronary artery disease or pulmonary disease . Preoperative exam is unremarkable except for stiffnessremarka and tenderness in posterior neck area. Blood pressure controlled with present treatment., She has a low cardiac risk index for proposed surgery (2) HTN (hypertension): Code(s): I10 - Essential (primary) hypertension Plan: Blood pressure controlled with current medication. Reinforced importance of following a low sodium diet, getting regular exercise, and lowering stress levels. Reminded to get her fasting labs done (3) Cervical radiculopathy due to degenerative joint disease of spine: Code(s): M47.22 - Other spondylosis with radiculopathy, cervical region Plan: Referral to physical therapy, continue with Tylenol arthritis 650 mg 1 tablet twice a day as needed for pain. Continue applying moist heat to affected area for 15 minutes at a time Orders: Orders PT Evaluation and Treatment Today M47.22 - Other spondylosis with radiculopathy, cervical region Coding Level of Care Code Est Pt Level 4 (25215) Complex EM visit Add On G2211 Diagnoses Preoperative examination Z01.818 HTN (hypertension) I10 Cervical radiculopathy due to degenerative joint disease of spine M47.22
== END 2023-08-25 16:41 | disposition home or self-care (01) ==
PROVIDERS: PCP Internal Medicine; Visit Provider Internal Medicine
DX: Z01.818 Encounter for other preprocedural examination (principal); I10 Essential (primary) hypertension; M47.22 Other spondylosis with radiculopathy, cervical region
CPT/HCPCS: 99214; G2211

== ENCOUNTER 2023-08-29 09:32 | Day surgery (SDC) | payer MEDICARE, SELFPAY ==
--- NOTE | 2023-08-25 13:40 | HO.ANESPROP2 ---
Documented by User: Heather Palomino NP 08/25/23 13:41 HPI - Anesthesia Eval Consult details Narrative: 78yo F for Right Cataract Extraction IOL Insertion No previous cataract on record PMFSH Active Problems Active Problems: All Active Problems Neck pain (Acute) Chronic right shoulder pain (Acute) Sprain of right hip (Acute) Upper respiratory tract infection (Acute) Dyslipidemia (Acute) Osteopenia (Acute) HTN (hypertension) (Acute) Acute sinusitis (Acute) Invasive lobular carcinoma of right breast in female (Chronic) Past Medical History Medical History History of rib fracture History of breast cancer Cervical radiculopathy due to degenerative joint disease of spine Dyslipidemia Osteopenia HTN (hypertension) Family History Family History Maternal Grandmother Breast cancer Son Drug overdose Surgical History Surgical History H/O section History of carpal tunnel surgery Social History Social History Household Members: None Housing: House Are you a primary director long term care to a significant other at home: No Do you presently have visiting nurse or other home services: No Alcohol intake: current Alcohol intake frequency: a few times a month Alcohol type: wine Patient Tobacco Use Status: Former Tobacco user Tobacco use type: Cigarette Cigarette Packs Per Day: 1 e-Cigarette/Vaping Use: Never Used Use of substances other than those prescribed or required for medical reasons: No Are you DNR?: No Advance Directives: No Advance Directives Information Provided: Yes Advance Directives on File: No Patient : No : No service: No Current occupational 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 Cognitive needs: No Hearing needs: No Vision needs: No Meds Allergies Allergy/AdvReac Type Severity Reaction Status Date / Time No Known Allergies Allergy Verified 08/25/23 16:25 [No Known Allergies*] Home Medications ?Medication ?Instructions ?Recorded ?Confirmed ?Last Taken ?Type multivitamin 1 tab PO DAILY 04/07/20 08/26/23 Unknown History calcium carbonate 600 mg-vitamin 1 tab PO DAILY 10/06/20 08/26/23 Unknown History D3 5 mcg (200 unit) tablet multivitamin with minerals 2 tab PO BID 04/21/21 08/26/23 Unknown History (Hair,Skin and Nails tablet) Assessment and Plan Assessment Anesthesia Assessment: Chart Reviewed Documented by User: Ghazal Wong MD 08/29/23 10:27 [facility] Past Medical History Medical History History of rib fracture History of breast cancer Cervical radiculopathy due to degenerative joint disease of spine Dyslipidemia Osteopenia HTN (hypertension) Family History Family History Maternal Grandmother Breast cancer Son Drug overdose Surgical History Surgical History H/O section History of carpal tunnel surgery History of Problems with Anesthesia: No Social History Social History Household Members: None Housing: House Are you a primary director long term care to a significant other at home: No Do you presently have visiting nurse or other home services: No Alcohol intake: current Alcohol intake frequency: a few times a month Alcohol type: wine Patient Tobacco Use Status: Former Tobacco user Tobacco use type: Cigarette Cigarette Packs Per Day: 1 e-Cigarette/Vaping Use: Never Used Use of substances other than those prescribed or required for medical reasons: No Are you DNR?: No Advance Directives: No Advance Directives Information Provided: Yes Advance Directives on File: No Patient : No : No service: No 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 occupational 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 Cognitive needs: No Hearing needs: No Vision needs: No Meds Allergies Allergy/AdvReac Type Severity Reaction Status Date / Time No Known Allergies Allergy Verified 08/25/23 16:25 [No Known Allergies*] Home Medications ?Medication ?Instructions ?Recorded ?Confirmed ?Last Taken ?Type multivitamin 1 tab PO DAILY 04/07/20 08/26/23 Unknown History calcium carbonate 600 mg-vitamin 1 tab PO DAILY 10/06/20 08/26/23 Unknown History D3 5 mcg (200 unit) tablet multivitamin with minerals 2 tab PO BID 04/21/21 08/26/23 Unknown History (Hair,Skin and Nails tablet) Exam Airway Mallampati Class: II TM Dist: >3cm Neck ROM: Limited Denture: Upper and Lower Loose/Missing/Broken Teeth: Yes, Upper and Lower Heart: RRR Lungs: CTA Assessment and Plan Assessment Anesthesia Assessment: Anesthesia Plan Discussed Final Anesthetic Review History of Problems with Anesthesia: No NPO: Yes ASA Class: II Final Preanesthetic Review: Meds/Allgs Chart Reviewed, Consent Obtained/Reviewed and Anes Risks/Benef Reviewed Patient Risk: Low Procedure Risk: Low Anesthetic Plan Anesthetic Plan: MAC: Disposition: Standard PACU
[2023-08-26 07:34] VITALS: BMI 18.8
[2023-08-29 09:43] VITALS: BP 166/87; PULSE 85; RESP 18; TEMP 36.9; O2SAT 97
[2023-08-29] MEDS: Lactated Ringers 500 ML 50 ML IV (09:52)
[2023-08-29] MEDS: Tetracaine HCl/PF 0.5% Oph Sol 4 ML DROPS 1 DROP EYE-RIGHT (09:53)
[2023-08-29] MEDS: Phenylephrine HCL 2.5% Oph SoL 2 ML BOTTLE 1 DROP EYE-RIGHT ×3 (09:53→09:55)
[2023-08-29] MEDS: Cyclopentolate 1 % Ophth Sol 2 ML DRPBTL 1 DROP EYE-RIGHT ×3 (09:53→09:55)
[2023-08-29] MEDS: Ketorolac Tromethamine 0.5% Op 10 ML DROPS 1 DROP EYE-RIGHT ×3 (09:53→09:55)
[2023-08-29] MEDS: Tropicamide 1 % Ophth Sol 3 ML BTL 1 DROP EYE-RIGHT ×3 (09:53→09:55)
--- NOTE | 2023-08-29 10:40 | P.PCNO_ITS ---
Ophthalmology Procedure Procedure Date of Service: 08/29/23 Ophthalmology Viscoelastic: Healon Duet Dual Pack Pro Ophthalmology Lenses: IOL Acrysof MP - MA60AC (23) Procedure Notes: PREOPERATIVE DIAGNOSIS: Decreased visual acuity right eye secondary to cataract POSTOPERATIVE DIAGNOSIS: Same PROCEDURE: Right cataract extraction with intraocular lens insertion SURGEON: Medardo Solis M.D. ANESTHESIA: Topical/MAC ESTIMATED BLOOD LOSS: None COMPLICATIONS: None After obtaining informed consent, the patient was brought to the operating room suite and placed in the supine position. After adequate sedation per anesthesia, topical drops of Tetracaine were given to the right eye. The eye was then prepped and draped in the usual sterile fashion. The operating room microscope was then positioned over the operative eye and a lid speculum placed. A paracentesis was created. Viscoelastic was then instilled into the anterior chamber. A three plane incision was then created temporally, utilizing a 2.85 mm keratome. Capsulotomy forceps were then utilized to create a circular tear capsulotomy. Hydrodissection and hydrodelineation were carried out until adequate mobilization of the nucleus occurred. Phacoemulsification was then utilized to remove the dense central nucl eus followed by removal of the cortical material utilizing the automated aspiration irrigation unit. Viscoelastic was instilled into the posterior capsular bag followed by placement of a posterior chamber intraocular lens without difficulty. The residual Viscoelastic was then removed utilizing the automated IA machine. The wound was checked and found to be watertight. The patient tolerated the procedure well and the lid speculum was removed. Intracameral injection of Vigamox 0.1 mL followed by a subtenon injection of Kenalog-40 0.2 mL were administered. The patient will be seen in the a.m.
--- NOTE | 2023-08-29 10:40 | MHC.SHP ---
Pre-Procedural Eval Section A - 24 Hr Update-Section A only Date of Service: 08/29/23 The patient is an INPATIENT: No Changes since office visit: No Cold of Flu in the past 2 weeks, No New Medical Problems, No Changes in Medication and No Patient answered all questions The patient has been examined within 24 hours of the surgical procedure. The History & Physical has been completed within 30 days and I have reviewed it.: Yes Section B - Complete if H&P > 30 days Chief Complaint: Age-related nuclear cataract, right eye Allergies: Allergies Allergy/AdvReac Type Severity Reaction Status Date / Time No Known Allergies Allergy Verified 08/25/23 16:25 [No Known Allergies*] Plan Diagnosis/Plan: Unchanged I have reviewed the history and physical and performed a pertinent physical examination on my patient. No changes have occurred unless specified. Time Spent With Patient Time: Total time managing care of this patient today ____ minutes.
[2023-08-29 11:10] VITALS: BP 157/72; PULSE 85; RESP 16; TEMP 36.5; O2SAT 99
== END 2023-08-29 12:04 | disposition home or self-care (01) ==
PROVIDERS: PCP Internal Medicine; Visit Provider Ophthalmology
PROC: (CPT 66985; principal; 2023-08-29 11:00)
DX: H25.11 Age-related nuclear cataract, right eye (principal); I10 Essential (primary) hypertension; Z79.899 Other long term (current) drug therapy
CPT/HCPCS: 66984; J2250; J3010; J3301; V2630

== ENCOUNTER 2023-09-12 07:51 | Day surgery (SDC) | payer MEDICARE, SELFPAY ==
[2023-08-26 07:40] VITALS: BMI 18.8
[2023-09-12 09:01] VITALS: BP 170/68; PULSE 64; RESP 16; TEMP 36.8; O2SAT 99; BMI 18.8
[2023-09-12] MEDS: Tetracaine HCl/PF 0.5% Oph Sol 4 ML DROPS 1 DROP EYE-LEFT (09:07)
--- NOTE | 2023-09-12 09:08 | HO.ANESPROP2 ---
[facility] Active Problems Active Problems: All Active Problems Invasive lobular carcinoma of right breast in female (Acute) Cervical radiculopathy due to degenerative joint disease of spine (Acute) Dyslipidemia (Acute) Osteopenia (Acute) HTN (hypertension) (Acute) Past Medical History Medical History History of rib fracture History of breast cancer Cervical radiculopathy due to degenerative joint disease of spine Dyslipidemia Osteopenia HTN (hypertension) Family History Family History Maternal Grandmother Breast cancer Son Drug overdose Surgical History Surgical History H/O section History of carpal tunnel surgery History of Problems with Anesthesia: No Social History Social History Household Members: None Housing: House Are you a primary critical care nurse practitioner to a significant other at home: No Do you presently have visiting nurse or other home services: No Alcohol intake: current Alcohol intake frequency: a few times a month Alcohol type: wine Patient Tobacco Use Status: Former Tobacco user Tobacco use type: Cigarette Cigarette Packs Per Day: 1 e-Cigarette/Vaping Use: Never Used Use of substances other than those prescribed or required for medical reasons: No Are you DNR?: No Advance Directives: No Advance Directives Information Provided: Yes Advance Directives on File: No Recently lost weight without trying: No Patient : No : No service: No Current occupational status: retired 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 Cognitive needs: No Hearing needs: No Vision needs: No Meds Allergies Allergy/AdvReac Type Severity Reaction Status Date / Time No Known Allergies Allergy Verified 08/25/23 16:25 [No Known Allergies*] Active Medications: Current Medications Cyclopentolate HCl (Cyclopentolate 1 % Ophth Rose 2 Ml Drpbtl) 1 drop EYE-LEFT Q5M [facility]WINA Stop: 09/12/23 09:11 Ketorolac Tromethamine (Ketorolac Tromethamine 0.5% Op 10 Ml Drops) 1 drop EYE-LEFT Q5M EDWINA Stop: 09/12/23 09:11 Phenylephrine HCl (Phenylephrine Hcl 2.5% Oph Rose 2 Ml Bottle) 1 drop EYE-LEFT Q5M EDWINA Stop: 09/12/23 09:11 Povidone Iodine (Povidone Iodine 5 % Ophth Soln 30 Ml Bottle) 1 appl EYE-LEFT PREOP PRN PRN Reason: Pre-Op Surgical Implant Prophy Tropicamide (Tropicamide 1 % Ophth Rose 3 Ml Btl) 1 drop EYE-LEFT Q5M [facility] Stop: 09/12/23 09:11 Home Medications ?Medication ?Instructions ?Recorded ?Confirmed ?Last Taken ?Type calcium carbonate 600 mg-vitamin 1 tab PO DAILY 10/06/20 09/05/23 Unknown History D3 5 mcg (200 unit) tablet multivitamin with minerals 2 tab PO BID 04/21/21 09/05/23 Unknown History (Hair,Skin and Nails tablet) Exam Height,Weight and Vital Signs: Height 5 ft 3 in Weight 48.081 kg Airway Mallampati Class: II (edentulous) TM Dist: >3cm Neck ROM: Full Denture: Upper and Lower Loose/Missing/Broken Teeth: Yes, Upper and Lower Heart: RRR Lungs: CTA Assessment and Plan Assessment Anesthesia Assessment: Anesthesia Plan Discussed and Chart Reviewed Final Anesthetic Review History of Problems with Anesthesia: No NPO: Yes ASA Class: II Final Preanesthetic Review: Meds/Allgs Chart Reviewed, Consent Obtained/Reviewed and Anes Risks/Benef Reviewed Patient Risk: Low Procedure Risk: Low Anesthetic Plan Anesthetic Plan: MAC: Disposition: Standard PACU
[2023-09-12] MEDS: Cyclopentolate 1 % Ophth Sol 2 ML DRPBTL 1 DROP EYE-LEFT ×3 (09:11→09:32)
[2023-09-12] MEDS: Tropicamide 1 % Ophth Sol 3 ML BTL 1 DROP EYE-LEFT ×3 (09:13→09:35)
[2023-09-12] MEDS: Ketorolac Tromethamine 0.5% Op 10 ML DROPS 1 DROP EYE-LEFT ×3 (09:16→09:38)
[2023-09-12] MEDS: Phenylephrine HCL 2.5% Oph SoL 2 ML BOTTLE 1 DROP EYE-LEFT ×3 (09:19→09:40)
[2023-09-12 09:27] VITALS: BP 158/67
--- NOTE | 2023-09-12 10:08 | MHC.SHP ---
Pre-Procedural Eval Section A - 24 Hr Update-Section A only Date of Service: 09/12/23 The patient is an INPATIENT: No Changes since office visit: No Cold of Flu in the past 2 weeks, No New Medical Problems, No Changes in Medication and No Patient answered all questions The patient has been examined within 24 hours of the surgical procedure. The History & Physical has been completed within 30 days and I have reviewed it.: Yes Section B - Complete if H&P > 30 days Chief Complaint: Age-related nuclear cataract, left eye Allergies: Allergies Allergy/AdvReac Type Severity Reaction Status Date / Time No Known Allergies Allergy Verified 08/25/23 16:25 [No Known Allergies*] Plan Diagnosis/Plan: Unchanged I have reviewed the history and physical and performed a pertinent physical examination on my patient. No changes have occurred unless specified. Time Spent With Patient Time: Total time managing care of this patient today ____ minutes.
--- NOTE | 2023-09-12 10:09 | HO.PNOPHT ---
Ophthalmology Procedure Procedure Date of Service: 09/12/23 Ophthalmology Viscoelastic: Healon Duet Dual Pack Pro Ophthalmology Lenses: IOL Acrysof MP - MA60AC (19.5) Procedure Notes: PREOPERATIVE DIAGNOSIS: Decreased visual acuity left eye secondary to cataract POSTOPERATIVE DIAGNOSIS: Same PROCEDURE: Left cataract extraction with intraocular lens insertion SURGEON: Medardo Solis M.D. ANESTHESIA: Topical/MAC ESTIMATED BLOOD LOSS: None COMPLICATIONS: None After obtaining informed consent, the patient was brought to the operation room suite and placed in the supine position. After adequate sedation per anesthesia, topical drops of Tetracaine were given to the left eye. The eye was then prepped and draped in the usual sterile fashion. The operating room microscope was then positioned over the operative eye and a lid speculum placed. A paracentesis was created. Viscoelastic was then instilled into the anterior chamber. A three plane incision was then created temporally, utilizing a 2.85 mm keratome. Capsulotomy forceps were then utilized to create a circular tear capsulotomy. Hydrodissection and hydrodelineation were carried out until adequate mobilization of the nucleus occurred. Phacoemulsification was then utilized to remove the dense central nucleus followed by removal of the cortical material utilizing the automated aspiration irrigation unit. Viscoat elastic was instilled into the posterior capsular bag followed by placement of a posterior chamber intraocular lens without difficulty. The residual Viscoat elastic was then removed utilizing the automated IA machine. The wound was check and found to be watertight. The patient tolerated the procedure well and the lid speculum was removed. Intracameral injection of Vigamox 0.1 mL followed by a subtenon injection of Kenalog-40 0.2 mL were administered. The patient will be seen in the a.m.
[2023-09-12 10:34] VITALS: BP 148/59; PULSE 72; RESP 16; TEMP 36.6; O2SAT 100
== END 2023-09-12 10:40 | disposition home or self-care (01) ==
PROVIDERS: PCP Internal Medicine; Visit Provider Ophthalmology
PROC: (CPT 66985; principal; 2023-09-12 10:00)
DX: H25.12 Age-related nuclear cataract, left eye (principal); H54.7 Unspecified visual loss; H35.033 Hypertensive retinopathy, bilateral; H35.363 Drusen (degenerative) of macula, bilateral; H11.153 Pinguecula, bilateral; I10 Essential (primary) hypertension; M85.80 Other specified disorders of bone density and structure, unspecified site; M47.22 Other spondylosis with radiculopathy, cervical region; Z85.3 Personal history of malignant neoplasm of breast; Z79.899 Other long term (current) drug therapy; Z87.891 Personal history of nicotine dependence
CPT/HCPCS: 66984; J2250; J3010; J3301; V2630

== ENCOUNTER 2024-03-15 09:23 | Outpatient (AMB) | payer MEDICARE, SELFPAY ==
[2024-03-15 09:36] VITALS: BP 120/68; PULSE 85; O2SAT 98; BMI 18.6
--- NOTE | 2024-03-15 09:36 | A.OFFPC_ITS ---
Vital Signs 03/15/24 09:36 Height 5 ft 3 in Weight 105 lb BMI 18.6 BP 120/68 Blood Pressure Location Rt brachial Position Sitting Pulse 85 Pulse Source Pulse Oximeter Pulse Oximetry (%) 98 Oxygen Delivery Method Room Air Intake Visit Reasons: Annual PE Intake Note: Pt is here today for her PE : last mammogram 04/29/23, bone density scan 04/27/23, colonoscopy 08/26/08 Allergies No Known Allergies [No Known Allergies*] Allergy (Verified 03/15/24 10:14) Medication List - Last Reconciled 03/15/24 by Lilly Colmenares MD calcium carbonate-vitamin D3 600 mg-5 mcg (200 unit) 1 tab PO DAILY metoprolol tartrate 25 mg PO BID multivitamin with minerals (Hair,Skin and Nails tablet) 2 tabs PO BID Tobacco use date assessed: 03/15/24 Fall risk assessment: No Falls in past year Last assessed Fall Risk: 03/15/24 Dental Screening Dental Screen Date: 03/15/24 Did you have a dental visit in the last 12 months?: No Did you have a dental problem in the last 6 months where you did not have access to dental care?: No Was dental information given to patient?: Patient declined HPI Annual PE HPI Details - The patient is a 78-year-old female pr esenting today for her physical exam and with a follow-up on her hypertension control, which is well controlled on present treatment with metoprolol tartrate 25 mg 1 tab twice a day - 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 Switch to Tamoxifen 20 mg once a day from 03/11/16 until 09/2020, and later took Arimidex until March 2021. Up-to-date with her screening mammogram 04/29/2023 with benign findings. Currently followed by hematology oncology at [facility] , and also was monitored for mild macrocytosis , and stable thrombocytopenia - has Osteopenia in multiple sites low as in left femoral neck, in August 2022. She is on calcium vitamin-D supplementation and participate in balance and osteoporosis prevention exercises. - Social history indicates social isolat ion due to estrangement from mell hitchcockdaughter and limited family interactions since the of her son in 2006. - Long history of pet ownership, but con cerns about taking on new animals due to age. [facility] Medical History History of rib fracture History of breast cancer Cervical radiculopathy due to degenerative joint disease of spine Dyslipidemia Osteopenia HTN (hypertension) Surgical History H/O section History of carpal tunnel surgery Family History Maternal Grandmother Breast cancer Son Drug overdose Social History Household Members: None Housing: House Are you a primary home care consultant to a significant other at home: No Do you presently have visiting nurse or other home services: No Alcohol intake: current Alcohol intake frequency: a few times a month Alcohol type: wine Patient Tobacco Use Status: Former Tobacco user Tobacco use type: Cigarette Cigarette Packs Per Day: 1 e-Cigarette/Vaping Use: Never Used service: No Current occupational status: retired 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 2. Feeling down, depressed, or hopeless: not at all 3. Trouble falling or staying asleep, or sleeping too much: not at all 4. Feeling tired or having little energy: not at all 5. Poor appetite or overeating: not at all 6. Feeling bad about yourself - or that you are a failure or have let yourself or your family down: not at all 7. Trouble concentrating on things, such as reading the newspaper or watching television: not at all 8. Moving or speaking so slowly that other people could have noticed. Or the opposite - being so fidgety or restless that you have been moving around a lot more than usual: not at all 9. Thoughts that you would be better off or of hurting yourself in some way: not at all Depression Screening Interpretation: Negative Depression Screening Done: Yes 48476 - PHQ-9 Billing: Yes Source: Developed by Drs. Selvin Hatch, Batool Pedersen, Levar Hyatt and colleagues, with an educational lisette from [employer]. Thrive Questionnaire Date Thrive assessed: 03/15/24 I am a: Patient What is your living situation today?: I have a steady place to live Within the past 12 months, did the food you bought not last and you didn't have the money to get more?: Never true Within the past 12 months, did you worry whether your food would run out before you got money to buy more?: Never true Do you have trouble paying for medicines?: No Do you have trouble getting transportation to medical appointments?: No Do you have trouble paying your heating and electricity bill?: No Do you have trouble taking care of your child, family member or friend?: No Do you have trouble with day-to-day activities such as bathing, preparing meals, shopping, managing finances, etc.?: No Are you currently unemployed and looking for a job?: No Are you interested in more education?: No Please select the resources that you would like help with: None Currently or been in a relationship where the following occur: No concerns reported THRIVE Score: 0 AUDIT C Alcohol Use Questionnaire (AUDIT-C) 1. How often do you have a drink containing alcohol?: 2-3 times a week 2. How many drinks containing alcohol do you have on a typical day when you are drinking?: 1 or 2 3. How often do you have six or more drinks on one occasion?: Never Total Score: 3 GISSELLE-7 AMB Questionnaire GISSELLE-7 Date GISSELLE - 7 assessed: 03/15/24 Feeling nervous, anxious, or on edge: 0 = Not at all Not being able to stop or control worryin = Not at all Worrying too much about different things: 0 = Not at all Trouble relaxin = Not at all Being so restless that it is hard to sit still: 0 = Not at all Becoming easily annoyed or irritable: 0 = Not at all Feeling afraid as if something awful might happen: 0 = Not at all Total GISSELLE-7 score (0-4 normal; 5-9 mild; 10-14 moderate; 15-21 severe): 0 Source: Developed by Drs. Selvin Hatch, Batool Pedersen, Levar Hyatt and colleagues, with an educational lisette from [employer]. GISSELLE-7 Assessment Billing GISSELLE-7 Assessment Tool: GISSELLE-7 Assessment 67539 Review of Systems Const Denies chills, Denies fever(s) and Denies headache(s) Eyes Reports blurry vision ENT Denies headache(s), Denies nasal discharge, Denies sinus pressure and Denies sore throat Card Denies chest pain, Denies rapid heart rate and Denies dyspnea Resp Denies chest congestion, Denies cough and Denies dyspnea GI Denies abdominal pain, Denies nausea and Denies vomiting Reports no additional complaints Musc Denies numbness, Reports stiffness and Denies tingling Skin/Breast Denies breast pain, Denies breast mass and Denies rash Neuro Denies headache(s), Denies numbness and Denies tingling Psych Reports no additional complaints Endo Reports no additional complaints Joel/Lymph Reports no additional complaints Aller/Immun Reports no additional complaints Physical exam (Primary Care) Vital Signs: Last Vital Signs Pulse 85 03/15/24 09:36 BP 120/68 03/15/24 09:36 Pulse Ox 98 03/15/24 09:36 Oxygen Delivery Method Room Air 03/15/24 09:36 BMI result Body Mass Index 18.6 Tobacco/Smoking Status: Tobacco use Status Tobacco use date assessed 03/15/24 03/15/24 09:38 Patient Tobacco Use Status Former Tobacco user 03/15/24 09:37 Tobacco use type Cigarette 03/15/24 09:37 e-Cigarette/Vaping Use Never Used 03/15/24 09:37 Depression Screening Interpretation: Negative Thrive Assessment: Date of Thrive Assessment Date Thrive assessed 03/15/24 03/15/24 09:43 Currently or been in a relationship where the following occur: No concerns reported Const Other: Alert oriented x3, no acute distress noted ambulatory normal gait Orientation/consciousness: patient oriented x3 HENMO Head: Yes normocephalic Ears: external ears normal, TM's normal bilaterally and EAC's normal General nose exam: Normal external nose present and No nasal discharge present Face and sinus: Yes face symmetric Mouth: Normal oral and palatal mucosa present, oropharynx normal and moist mucous membranes Eyes General: appearance normal, both eyes and all related structures Neck Other: Supple, no lymphadenopathy, thyroid gland nonpalpable Chest Chest palpation & inspection: normal inspection of the chest Breast/axilla palpation: normal palpation of the breasts Resp Effort & Inspection: normal respiratory effort and able to speak in complete sentences Auscultation: clear to auscultation bilaterally Cardio Other: S1-S2 present regular rate and rhythm GI Palpation (GI): Soft to palpation, nontender and no guarding Auscultation: normal bowel sounds General: Yes no CVA tenderness and Yes deferred Back/Spine/Pelvis Back: no CVA tenderness Cervical Spine: cervical muscular tenderness and cervical spasm Skin General skin exam: no rashes or lesions noted Neuro General: patient oriented x3, gait normal, moves all extremities, Normal light touch and pain sensation, no focal motor deficits and CN's II-XI intact bilaterally Extrem General: Yes no joint enlargement, Yes no pedal edema, Yes no calf tenderness and Yes normal gait Psych Appearance: grossly normal and well kempt Mental Status: mental status grossly normal Speech and movement: Normal speech and movement present Affect: normal affect Attitude: cooperative Thought process: Normal thought process present Thought content: Normal thought content present Coding Level of Care Code Est Pt Prev Care >65y(95309) Diagnoses Annual visit for general adult medical examination with abnormal findings Z00. Dyslipidemia E78.5 Osteopenia M85.80 HTN (hypertension) I10 Additional Codes PHQ-9 - 38587 - PHQ-9 Billing: Yes ([id number]) GISSELLE-7 Assessment Billing - GISSELLE-7 Assessment Tool: GISSELLE-7 Assessment 81932 ([id number]) Assessment & Plan Assessment & Plan (1) Annual visit for general adult medical examination with abnormal findings: Code(s): Z00.01 - Encounter for general adult medical examination with abnormal findings (2) Dyslipidemia: Comment: Controlled with diet Code(s): E78.5 - Hyperlipidemia, unspecified Category: Medical (3) Osteopenia: Code(s): M85.80 - Other specified disorders of bone density and structure, unspecified site Category: Medical (4) HTN (hypertension): Code(s): I10 - Essential (primary) hypertension Category: Medical Plan - Continue current hypertension medication as prescribed. - Maintain a balanced diet and exercise routine to manage weight. - [facility] up with osteoporosis [facility] the [facility]. - Consider making efforts for social interaction or seek support groups. - fasting labs ordered -up-to-date with all her vaccinations except for the shingles vaccine which was recommended. - declines further colonoscopy screenings Orders: Orders Lipid Panel Today E78.5 - Hyperlipidemia, unspecified, I10 - Essential (primary) hypertension, M85.80 - Other specified disorders of bone density and structure, unspecified site Basic Metabolic Panel Fasting Today E78.5 - Hyperlipidemia, unspecified, I10 - Essential (primary) hypertension, M85.80 - Other specified disorders of bone density and structure, unspecified site Vitamin D 25-OH Total Today E78.5 - Hyperlipidemia, unspecified, I10 - Essential (primary) hypertension, M85.80 - Other specified disorders of bone density and structure, unspecified site
== END 2024-03-15 11:20 | disposition home or self-care (01) ==
PROVIDERS: PCP Internal Medicine; Visit Provider Internal Medicine
DX: Z00.01 Encounter for general adult medical examination with abnormal findings (principal); E78.5 Hyperlipidemia, unspecified; M85.80 Other specified disorders of bone density and structure, unspecified site; I10 Essential (primary) hypertension

== ENCOUNTER → 2024-03-15 09:23 | Outpatient (BNVA) | payer MEDICARE, SELFPAY | PROVIDERS: PCP Internal Medicine; Visit Provider Internal Medicine | DX: Z00.01 Encounter for general adult medical examination with abnormal findings (principal); E78.5 Hyperlipidemia, unspecified; I10 Essential (primary) hypertension; M85.89 Other specified disorders of bone density and structure, multiple sites; Z85.3 Personal history of malignant neoplasm of breast; Z92.3 Personal history of irradiation | CPT/HCPCS: 96127; 99397 ==

== ENCOUNTER 2024-05-04 09:09 | Outpatient (REF) | payer MEDICARE, SELFPAY | END 2024-05-04 09:10 | disposition home or self-care (01) | LOC: HO.MAMMO 09:09 | PROVIDERS: PCP Internal Medicine; Visit Provider Internal Medicine | DX: Z12.31 Encounter for screening mammogram for malignant neoplasm of breast (principal) ==

== ENCOUNTER → 2024-05-04 09:15 | Outpatient (BNV) | payer MEDICARE, SELFPAY | PROVIDERS: PCP Internal Medicine; Visit Provider Internal Medicine | DX: Z12.31 Encounter for screening mammogram for malignant neoplasm of breast (principal) | CPT/HCPCS: 77063; 77067 ==